=== PATIENT | female | born 1935 | race Caucasian/White ===

== ENCOUNTER 2016-10-03 10:51 | Outpatient (CLI) | payer MEDICARE ==
[2016-10-03 17:50] LABS: BASOPHILS # (AUTO) 0.1 10^3/uL (0.0-0.1); BASOPHILS % (AUTO) 0.8 %; EOSINOPHILS # (AUTO) 0.2 10^3/uL (0.0-0.7); EOSINOPHILS % (AUTO) 2.5 %; HCT - HEMATOCRIT 38.1 % (37.0-47.0); HGB - HEMOGLOBIN 12.5 g/dL (12.0-16.0); LYMPHOCYTES # (AUTO) 2.6 10^3/uL (1.5-3.5); LYMPHOCYTES % (AUTO) 28.7 %; MEAN CORPUSCULAR HEMOGLOBIN 27.3 pg (27.0-31.0); MEAN CORPUSCULAR HGB CONC 32.9 g/dL (32.0-36.0); MEAN CORPUSCULAR VOLUME 83.2 fL (81.0-99.0); MEAN PLATELET VOLUME 7.9 fL (7.9-10.8); MONOCYTES # (AUTO) 0.7 10^3/uL (0.0-1.0); MONOCYTES % (AUTO) 7.2 %; NEUTROPHILS # (AUTO) 5.5 10^3/uL (1.5-6.6); NEUTROPHILS % (AUTO) 60.8 %; NUCLEATED RED BLOOD CELLS AUTO 0.1 /100WBC; RED BLOOD COUNT 4.58 10^6/uL (4.20-5.40); RED CELL DISTRIBUTION WIDTH 13.9 % (12.0-15.0)
[2016-10-03 18:05] LABS: HEMOGLOBIN A1C 0.88 g/dL
[2016-10-03 18:17] LABS: ALBUMIN/GLOBULIN RATIO 1.3 (1.0-2.2); BILIRUBIN,TOTAL 0.6 mg/dL (0.2-1.0); BUN - BLOOD UREA NITROGEN 34 mg/dL (6-20); CALCIUM 9.5 mg/dL (8.5-10.3); CARBON DIOXIDE - CO2 28 mmol/L (21-32); CHLORIDE 99 mmol/L (101-111); CHOL/HDL RATIO 4.3 (<4.4); CHOLESTEROL 149 mg/dL; CREATININE 1.3 mg/dL (0.4-1.0); GFR - MDRD 39 (>89); GLUCOSE 182 mg/dL (70-100); HDL CHOLESTEROL 35 mg/dL; LDL/HDL RATIO 2.2 (<4.4); POTASSIUM 4.2 mmol/L (3.5-5.0); SODIUM 137 mmol/L (135-145); TOTAL PROTEIN 7.5 g/dL (6.7-8.2); TRIGLYCERIDES 188 mg/dL; VLDL CHOLESTEROL 38 mg/dL
== END 2016-10-03 10:52 | disposition home or self-care (01) ==
LOC: LAB.F 10:51
PROVIDERS: ATTEND Family Medicine
DX: Z00.00 Encounter for general adult medical examination without abnormal findings (principal); E11.9 Type 2 diabetes mellitus without complications; I25.10 Atherosclerotic heart disease of native coronary artery without angina pectoris
CPT/HCPCS: 36415; 80053; 80061; 83036; 85025

== ENCOUNTER 2017-04-16 10:11 | Outpatient (CLI) | payer MEDICARE ==
[2017-04-16 18:02] LABS: BASOPHILS # (AUTO) 0.1 10^3/uL (0.0-0.1); BASOPHILS % (AUTO) 0.9 %; EOSINOPHILS # (AUTO) 0.3 10^3/uL (0.0-0.7); EOSINOPHILS % (AUTO) 3.5 %; HGB - HEMOGLOBIN 12.1 g/dL (12.0-16.0); LYMPHOCYTES # (AUTO) 2.2 10^3/uL (1.5-3.5); LYMPHOCYTES % (AUTO) 28.4 %; MEAN CORPUSCULAR HEMOGLOBIN 26.6 pg (27.0-31.0); MEAN CORPUSCULAR HGB CONC 32.3 g/dL (32.0-36.0); MEAN CORPUSCULAR VOLUME 82.2 fL (81.0-99.0); MONOCYTES # (AUTO) 0.6 10^3/uL (0.0-1.0); MONOCYTES % (AUTO) 7.8 %; NEUTROPHILS # (AUTO) 4.6 10^3/uL (1.5-6.6); NEUTROPHILS % (AUTO) 59.4 %; PLT - PLATELET COUNT 287 10^3/uL (130-450); RED BLOOD COUNT 4.57 10^6/uL (4.20-5.40); WHITE BLOOD COUNT 7.7 x10^3/uL (4.8-10.8)
[2017-04-16 18:07] LABS: ALBUMIN 4.1 g/dL (3.2-5.5); ALBUMIN/GLOBULIN RATIO 1.2 (1.0-2.2); ALKALINE PHOSPHATASE 57 IU/L (42-121); ALT ALANINE AMINOTRANSFERASE 11 IU/L (10-60); AST ASPARTATE AMINOTRANSFERASE 17 IU/L (10-42); BILIRUBIN,TOTAL 0.5 mg/dL (0.2-1.0); BUN - BLOOD UREA NITROGEN 27 mg/dL (6-20); CALCIUM 9.2 mg/dL (8.5-10.3); CARBON DIOXIDE - CO2 26 mmol/L (21-32); CHLORIDE 100 mmol/L (101-111); CHOL/HDL RATIO 4.1 (<4.4); CHOLESTEROL 159 mg/dL; CREATININE 1.1 mg/dL (0.4-1.0); GFR - MDRD 48 (>89); GLUCOSE 132 mg/dL (70-100); HDL CHOLESTEROL 39 mg/dL; SODIUM 134 mmol/L (135-145); TOTAL PROTEIN 7.4 g/dL (6.7-8.2)
[2017-04-16 18:09] LABS: HB2 TOTAL 13.8 g/dL; HEMOGLOBIN A1C 0.8 g/dL; HEMOGLOBIN A1C % 7.5 % (4.6-6.2)
[2017-04-16 18:25] LABS: LDL CHOLESTEROL,CALCULATED 72 mg/dL; LDL/HDL RATIO 1.8 (<4.4); VLDL CHOLESTEROL 48 mg/dL
== END 2017-04-16 10:12 | disposition home or self-care (01) ==
LOC: LAB.F 10:11
PROVIDERS: ATTEND Family Medicine
DX: Z00.00 Encounter for general adult medical examination without abnormal findings (principal); E78.5 Hyperlipidemia, unspecified; I10 Essential (primary) hypertension; E05.90 Thyrotoxicosis, unspecified without thyrotoxic crisis or storm; E11.9 Type 2 diabetes mellitus without complications; I25.10 Atherosclerotic heart disease of native coronary artery without angina pectoris
CPT/HCPCS: 36415; 80053; 80061; 83036; 83721; 84443; 85025

== ENCOUNTER 2017-08-14 09:30 | Outpatient (CLI) | payer MEDICARE ==
--- NOTE | 2017-08-14 10:23 | XRAY Report ---
Procedure Date: 08/14/2017 Accession Number: [id number] / [id number] Procedure: XRS - Hip w/Pelvis 2-3V RT CPT Code: FULL RESULT: EXAM: Hip w/Pelvis 2-3V RT DATE: 08/14/2017 9:46 AM CLINICAL HISTORY: UNILATERAL PRIMARY OSTEOARTHRITIS,RIGHT HIP COMPARISON: 11/03/2014 TECHNIQUE: 1 view of the pelvis and 1 view of the hip. FINDINGS: Bones: Normal. No fracture or bone lesion. Joints: Moderate osteoarthritis appears stable. Soft Tissues: Normal. No soft tissue swelling. IMPRESSION: Stable moderate osteoarthritis. RADIA
== END 2017-08-14 09:31 | disposition home or self-care (01) ==
LOC: DI.S 09:30
PROVIDERS: ATTEND Internal Medicine
DX: M16.11 Unilateral primary osteoarthritis, right hip (principal)

== ENCOUNTER 2017-11-06 10:28 | Outpatient (CLI) | payer MEDICARE ==
[2017-11-06 20:09] LABS: CALCIUM 9.3 mg/dL (8.5-10.3); CREATININE 1.2 mg/dL (0.4-1.0)
[2017-11-06 21:16] LABS: HB2 TOTAL 12.7 g/dL; HEMOGLOBIN A1C 0.84 g/dL; HEMOGLOBIN A1C % 8.2 % (4.6-6.2)
== END 2017-11-06 10:29 | disposition home or self-care (01) ==
LOC: LAB.F 10:28
PROVIDERS: ATTEND Family Medicine
DX: E11.9 Type 2 diabetes mellitus without complications (principal); I10 Essential (primary) hypertension
CPT/HCPCS: 36415; 80048; 82043; 83036

== ENCOUNTER 2018-03-01 13:59 | Inpatient (IN) | payer MEDICARE ==
--- NOTE | 2018-03-01 14:25 | ED Physician Documentation ---
History of Present Illness - Stated complaint Stated Complaint: BODY ACHES/COUGHING - Chief complaint Chief Complaint: Fever - History obtained from History obtained from: Patient, Family (daughter in law) - History of Present Illness Timing: Yesterday (Cough that is productive of clear sputum and runny nose with chills and slight delirium per the daughter for the last day or 2. Sent from the clinic for high fever and borderline hypoxemia as well as hypertension.) Review of Systems Ten Systems: 10 systems reviewed and negative Constitutional: reports: Fever, Chills Nose: reports: Rhinorrhea / runny nose Cardiac: denies: Chest pain / pressure, Palpitations Respiratory: reports: Cough. 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 Cardiovascular: CABG, Other HEENT: Tonsil/Adenoidectomy Derm: Skin cancer surgery - Present Medications Home Medications: Ambulatory Orders Medication Instructions Recorded Confirmed Insulin Glargine,Hum.rec.anlog 10 units SQ DAILY 08/27/13 03/01/18 [Lantus] Lisinopril/Hydrochlorothiazide 1 tab ORAL BID 08/27/13 03/01/18 [Lisinopril-Hctz 20-25 mg Tab] Metformin HCl [Glucophage Xr] 1,000 mg ORAL BID 08/27/13 03/01/18 Metoprolol Succinate [Toprol Xl] 25 mg PO BID 08/27/13 03/01/18 glipiZIDE [Glucotrol] 5 mg ORAL BID 08/27/13 03/01/18 Atorvastatin Calcium [Lipitor] 10 mg PO DAILY 11/19/13 03/01/18 - Allergies Allergies/Adverse Reactions: Allergies Allergy/AdvReac Type Severity Reaction Status Date / Time No Known Drug Allergies Allergy Verified 03/01/18 14:03 - Family History Family history: reports: Non contributory PD ED PE NORMAL - Vitals Vital signs reviewed: Yes - General General: Alert and oriented X 3, No acute distress - HEENT HEENT: PERRL, EOMI, Pharynx benign - Neck Neck: Supple, no meningeal sign, No bony TTP - Cardiac Cardiac: Other (Tachy, RR) - Respiratory Respiratory: Other (L base crackles) - Abdomen Abdomen: Normal bowel sounds, Soft, Non tender - Back Back: No CVA TTP, No spinal TTP - Derm Derm: Normal color, Warm and dry - Extremities Extremities: Other (Pedal edema, but calves ok) - Neuro Neuro: Alert and oriented X 3, Normal speech - Psych Psych: Normal mood, Normal affect Results - Vitals Vitals: Vital Signs - 24 hr 03/01/18 03/01/18 03/01/18 14:01 14:23 14:55 Temperature 38.5 C H 36.6 C Heart Rate 117 H 90 Respiratory 22 19 Rate Blood Pressure 177/78 H 152/85 H O2 Saturation 92 96 87 L 03/01/18 03/01/18 15:09 15:45 Temperature 100.9 C H Heart Rate 115 H Respiratory 21 Rate Blood Pressure 149/74 H O2 Saturation 95 94 Oxygen O2 Source Room air Oxygen Flow Rate 2 - Labs Labs: Laboratory Tests 03/01/18 03/01/18 03/01/18 14:45 14:45 14:45 WBC 9.4 RBC 4.36 Hgb 12.2 Hct 36.0 L MCV 82.6 MCH 27.9 MCHC 33.7 RDW 14.5 Plt Count 216 MPV 7.3 L Neut # (Auto) 8.2 H Lymph # (Auto) 0.4 L [place] # (Auto) 0.8 Eos # (Auto) 0.0 Baso # (Auto) 0.0 Absolute Nucleated RBC 0.00 Nucleated RBC % 0.0 Sodium 130 L Potassium 3.9 Chloride 95 L Carbon Dioxide 23 Anion Gap 12.0 BUN 28 H Creatinine 1.4 H Estimated GFR (MDRD) 36 L Glucose 270 H Lactic Acid 2.0 Calcium 8.7 Total Bilirubin 0.6 AST 33 ALT 14 Alkaline Phosphatase 70 Total Protein 7.8 Albumin 4.1 Globulin 3.7 Albumin/Globulin Ratio 1.1 Lipase 60 H Influenza A (Rapid) Influenza B (Rapid) 03/01/18 15:05 WBC RBC Hgb Hct MCV MCH MCHC RDW Plt Count MPV Neut # (Auto) Lymph # (Auto) [place] # (Auto) Eos # (Auto) Baso # (Auto) Absolute Nucleated RBC Nucleated RBC % Sodium Potassium Chloride Carbon Dioxide Anion Gap BUN Creatinine Estimated GFR (MDRD) Glucose Lactic Acid Calcium Total Bilirubin AST ALT Alkaline Phosphatase Total Protein Albumin Globulin Albumin/Globulin Ratio Lipase Influenza A (Rapid) POSITIVE H Influenza B (Rapid) Negative - Rads (name of study) 2v chest Radiology: EMP read contemporaneously (NAD) PD MEDICAL DECISION MAKING - ED course ED course: 82-year-old woman with history of type 2 diabetes, coronary disease and hypertension presents with fevers and chills and productive cough. Clinically with pneumonia although her chest x-ray is clear but is found to have positive influenza A swab which is treated with Tamiflu. Given the clinical pneumonia I also put her on IV doxycycline and she has persistent hypoxemia necessitating admission and I spoke with Dr. Parada for same at 4:20 PM. Departure - Departure Disposition: 66 [facility] DC/Xfer Clinical Impression: Influenza A, Hypoxemia Coronary artery disease Qualifiers: Coronary Disease-Associated Artery/Lesion type: [place] artery [place] vs. tr ansplanted heart: [place] heart Associated angina: angina presence unspecified Qualified Code(s): I25.10 - Atherosclerotic heart disease of [place] coronary artery without angina pectoris Diabetes type 2, uncontrolled Qualifiers: Glycemic state: with hyperglycemia Qualified Code(s): E11.65 - Type 2 diabetes mellitus with hyperglycemia Condition: Serious
[2018-03-01 14:54] LABS: BASOPHILS % (AUTO) 0.3 %; HGB - HEMOGLOBIN 12.2 g/dL (12.0-16.0); LYMPHOCYTES # (AUTO) 0.4 10^3/uL (1.5-3.5); LYMPHOCYTES % (AUTO) 4.6 %; MEAN CORPUSCULAR HEMOGLOBIN 27.9 pg (27.0-31.0); MEAN CORPUSCULAR HGB CONC 33.7 g/dL (32.0-36.0); MEAN CORPUSCULAR VOLUME 82.6 fL (81.0-99.0); MEAN PLATELET VOLUME 7.3 fL (7.9-10.8); MONOCYTES # (AUTO) 0.8 10^3/uL (0.0-1.0); MONOCYTES % (AUTO) 8.4 %; NEUTROPHILS # (AUTO) 8.2 10^3/uL (1.5-6.6); NEUTROPHILS % (AUTO) 86.7 %; PLT - PLATELET COUNT 216 10^3/uL (130-450); RED BLOOD COUNT 4.36 10^6/uL (4.20-5.40); RED CELL DISTRIBUTION WIDTH 14.5 % (12.0-15.0); WHITE BLOOD COUNT 9.4 x10^3/uL (4.8-10.8)
--- NOTE | 2018-03-01 15:01 | XRAY Report ---
Reason: cough Procedure Date: 03/01/2018 Accession Number: [id number] / [id number] Procedure: XR - Chest 2 View X-Ray CPT Code: 74211 FULL RESULT: EXAM: CHEST RADIOGRAPHY EXAM DATE: 03/01/2018 02:38 PM. CLINICAL HISTORY: Cough. COMPARISON: 03/23/2005. TECHNIQUE: 2 views. FINDINGS: Lungs/Pleura: No focal consolidation. No pleural effusion. No pneumothorax. Normal expansion. Mediastinum: Heart and mediastinal contours are unremarkable. Surgical changes from coronary bypass. Other: None. IMPRESSION: No acute cardiopulmonary abnormality. RADIA
[2018-03-01 15:20] LABS: ALBUMIN 4.1 g/dL (3.2-5.5); ALBUMIN/GLOBULIN RATIO 1.1 (1.0-2.2); BILIRUBIN,TOTAL 0.6 mg/dL (0.2-1.0); CALCIUM 8.7 mg/dL (8.5-10.3); CREATININE 1.4 mg/dL (0.4-1.0); TOTAL PROTEIN 7.8 g/dL (6.7-8.2)
[2018-03-01] MEDS ORDERED: SODIUM CHLORIDE 0.9% 1,000 ML IV ONE (15:29)
[2018-03-01] MEDS ORDERED: OSELTAMIVIR 75 MG CAPSULE PO STA (15:49)
[2018-03-01] MEDS ORDERED: DOXYCYCLINE INJ 100 MG in SODIUM CHLORIDE 0.9% MINIBAG 100 ML IV STA (16:18)
[2018-03-01] MEDS ORDERED: ONDANSETRON 4 MG/2 ML VIAL IVP PRN (16:42)
[2018-03-01] MEDS ORDERED: SODIUM CHLORIDE FLUSH 0.9% 10 ML SYRINGE IVP PRN (16:42)
[2018-03-01] MEDS ORDERED: ACETAMINOPHEN 325 MG TABLET PO PRN (16:42)
[2018-03-01] MEDS ORDERED: cefTRIAXone 1 GM VIAL IVP SCH (16:49)
--- NOTE | 2018-03-01 16:58 | HISTORY & PHYSICAL EXAMINATION ---
Chief Complaint - Chief Complaint Chief Complaint: cough with fever History of Present Illness - History of Present Illness HPI Comment/Other: Ms. Stapleton is a 82-year-old female with a PMH significant for type 2 diabetes, hx of CAD and MD, and hypertension, who presents ER with fevers and chills and productive cough. Pt report she had cough for 3-4 days. Last night she had fever at 102 degree. Although her chest x-ray is clear but Clinically she p resent crackles lung sound bilaterally and pneumonia. Also pt is found to have positive influenza A in swab. Pt had 38.5 degree fever at ER, elevated blood pressure, ST at 117, 92% sats on room air. Pt is admitted for pneumonia, fever and influenza infection. 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 Living arrangement: At home Living Situation: With family - POLST POLST Status: Full Code Meds/Allgy - Home Medications Home Medications: Ambulatory Orders Medication Instructions Recorded Confirmed Insulin Glargine,Hum.rec.anlog 12 units SQ DAILY 08/27/13 03/01/18 [Lantus] Metformin HCl [Glucophage Xr] 1,000 mg ORAL BID 08/27/13 03/01/18 glipiZIDE [Glucotrol] 5 mg ORAL BID 08/27/13 03/01/18 Atorvastatin Calcium [Lipitor] 10 mg PO DAILY 11/19/13 03/01/18 Lisinopril/Hydrochlorothiazide 2 tab PO DAILY 03/01/18 03/01/18 [Lisinopril-Hctz 20-12.5 mg Tab] Metoprolol Tartrate [Lopressor] 50 mg PO BID 03/01/18 03/01/18 Aspirin [Aspirin EC] 81 mg PO DAILY 03/02/18 03/02/18 Furosemide [Lasix] 10 mg PO DAILY PRN 03/02/18 03/02/18 - Allergies Allergies/Adverse Reactions: Allergies Allergy/AdvReac Type Severity Reaction Status Date / Time No Known Drug Allergies Allergy Verified 03/01/18 14:03 Review of Systems - Constitutional Constitutional: reports: Fatigue, Fever, Chills, Weakness. denies: Malaise, Poor appetite, Diaphoresis, Night sweats - Eyes Eyes: denies: Pain, Irritation, Amaurosis, Blurred vision, Spots in vision, Field loss, Vision loss, Dipolpia - Ears, Nose & Throat Ears, Nose & Throat: denies: Ear pain, Hearing loss, Hearing aids, Tinnitus, Vertigo, Nasal pain, Nasal discharge, Nosebleeds, Nasal obstruction, Nasal congestion, Postnasal drainage, Dentures, Sore throat, Hoarseness - Cardiovascular Cariovascular: denies: Irregular heart rate, Palpitations, Chest pain, Edema, Lightheadedness, Syncope, Exertional dyspnea, Decr. exercise tolerance - Respiratory Respiratory: reports: Cough, Sputum production, Snoring. denies: Wheezing, Hemoptysis, Orthopnea, SOB at rest, SOB with exertion, Apnea, Stridor, Pleuritic pain - Gastrointestinal Gastrointestinal: denies: Abdominal pain, Abdominal distention, Constipation, Diarrhea, Change in bowel habits, Rectal bleeding, Black stools, Bloody stools, Nausea, Vomiting, Bile emesis, Lazaro blood emesis, Coffee grounds emesis, Reflux/heartburn - Genitourinary Genitourinary: denies: Dysuria, Frequency, Urgency, Hematuria, Incontinence, Flank pain, Nocturia, Urethral discharge - Musculoskeletal Musculoskeletal: denies: Muscle pain, Back pain, Muscle aches, Stiffness, Limited range of motion, Muscle weakness, Gout, Joint pain - Integumentary Integumentary: denies: Rash, Pruritis, Lesions, Dryness, Lumps, Acne, Pigment changes, Nail changes - Neurological Neurological: denies: General weakness, Focal weakness, Headache, Dizziness, Numbness, Memory problems, Pre-existing deficit, Abnormal gait - Psychiatric Psychiatric: denies: Depression, Anxiety, Suicidal, Delusions, Hallucinations, Homicidal - Endocrine Endocrine: denies: Polyuria, Polydypsia, Polyphagia, Intolerance to cold - Hematologic/Lymphatic Hematologic/Lymphatic: denies: Anemia, Bruising, Petechiae, Blood clots, Lymphadenopathy, Bleeding tendencies Prior Level of Functionality: independently Exam - Vital Signs Reviewed Vital Signs: Yes Vital Signs: Vital Signs x48h Temp Pulse Resp BP Pulse Ox 03/01/18 16:30 38.8 C H 102 H 21 137/101 H 98 03/01/18 15:45 94 03/01/18 15:09 38.3 C H 115 H 21 149/74 H 95 03/01/18 14:55 87 L 03/01/18 14:23 36.6 C 90 19 152/85 H 96 03/01/18 14:01 38.5 C H 117 H 22 177/78 H 92 - Physical Exam General Appearance: positive: No acute distress, Alert. negative: Lethargic Eyes Bilateral: positive: Normal inspection, PERRL, No lid inflammation, Conjunctivae nml ENT: positive: ENT inspection nml, Pharynx nml, No signs of dehydration. negative: Purulent nasal drainage, Pharyngeal erythema, Oral lesions Neck: positive: Nml inspection, Thyroid nml, No JVD, Trachea midline. negative: Thyromegaly, Lymphadenopathy (R), Lymphadenopathy (L), Stiff neck, Swelling/bruising, Tracheal deviation Respiratory: positive: Chest non-tender, No respiratory distress, Rhonchi. negative: Wheezes, Rales Cardiovascular: positive: Regular rate & rhythm, No murmur, No gallop. negative: Irregularly irregular, Extrasystoles, Tachycardia, Bradycardia, JVD present, Systolic murmur, Diastolic murmur Peripheral Pulses: positive: 2+ Abdomen: positive: Non-tender, No organomegaly, Nml bowel sounds, No distention. negative: Tenderness, Guarding, Rebound Back: positive: Nml inspection. negative: CVA tenderness (R), CVA tenderness (L) Skin: positive: Color nml, No rash, Warm, Dry. negative: Cyanosis, Diaphoresis, Pallor Extremities: positive: Non-tender, Full ROM, Nml appearance. negative: Calf tenderness, Joint swelling, Pedrito's sign/cords Neurologic/Psychiatric: positive: Oriented x3, Motor nml, Sensation nml, Mood/affect nml. negative: Weakness, Sensory loss, Facial droop, Slurred/abnml speech, Depressed mood/affect Sepsis Event Note (H) - Evaluation Current Stage of Sepsis: Sepsis Possible source of Sepsis: positive: Pulmonary - Sepsis Criteria Sepsis Criteria: Recorded Temperature greater than 38.3C or Less than 36C, Recorded Heart Rate greater than 90 bpm Conclusion/Plan - Problem List (1) Pneumonia Conclusion/Plan: pt present fever, cough with productive, crackles lung sound bilaterally treat with antibiotics Rocephin and Azith blood culture, followup vital and tele monitor IVF of NS (2) Fever Conclusion/Plan: treat underline pneumonia and influ A infection Tylenol PRN IVF of NS, precaution of Sepsis (3) Influenza A Conclusion/Plan: treat with Tamiflu isolation for influenza infection (4) Diabetes type 2, uncontrolled Conclusion/Plan: resume home insulin dosage slide scale ACHS check A1C hypoglycemia protocol Qualifiers: Glycemic state: with hyperglycemia Qualified Code(s): E11.65 - Type 2 diabetes mellitus with hyperglycemia (5) Hx of coronary artery disease Conclusion/Plan: resume home Aspirin treat HTN with BP meds tele and vital monitor (6) HTN (hypertension) Conclusion/Plan: resume home BP meds. vital monitor (7) CKD (chronic kidney disease) Conclusion/Plan: hydration, hold neph toxical agent lab monitor (8) Full code status Conclusion/Plan: pt request full code with CPR but decline incubation - Lab Results Fish Bones: 03/02/18 06:00 03/02/18 06:00 Core Measures - Anticipated LOS I expect patient to be DC'd or transferred within 96 hours.: Yes - DVT/VTE - Prophylaxis VTE/DVT Device ordered at admit?: Yes VTE/DVT Prophylaxis med ordered at admit?: Yes
[2018-03-01] MEDS ORDERED: ACETAMINOPHEN 325 MG TABLET PO STA (16:59)
[2018-03-01 17:35] LABS: HEMOGLOBIN A1C 0.82 g/dL; HEMOGLOBIN A1C % 7.9 % (4.6-6.2)
[2018-03-01] MEDS: cefTRIAXone 1 GM in SODIUM CHLORIDE 0.9% MINIBAG 100 ML IV SCH (18:12)
[2018-03-01] MEDS: SODIUM CHLORIDE 0.9% 1,000 ML IV SCH (18:13)
[2018-03-01] MEDS: INSULIN ASPART 300 UNIT/3 ML PEN SUBQ SCH ×2 (18:13→21:04)
[2018-03-01] MEDS: SODIUM CHLORIDE FLUSH 0.9% 10 ML SYRINGE IVP SCH (18:14)
[2018-03-01] MEDS: LISINOPRIL 20 MG TABLET PO SCH (18:17)
[2018-03-01] MEDS: AZITHROMYCIN INJ 500 MG in SODIUM CHLORIDE 0.9% 250 ML IV SCH (18:53)
[2018-03-01] MEDS: HEPARIN 5,000 UNIT/ML VIAL SUBQ SCH (20:59)
[2018-03-01] MEDS ORDERED: INSULIN GLARGINE 300 UNIT/3 ML PEN SUBQ SCH (21:00)
[2018-03-01] MEDS: OSELTAMIVIR 30 MG CAPSULE PO SCH (21:07)
[2018-03-01] MEDS: FAMOTIDINE 20 MG TABLET PO SCH (21:07)
[2018-03-01] MEDS: METOPROLOL TARTRATE 50 MG TABLET PO SCH (21:54)
[2018-03-02] MEDS: SODIUM CHLORIDE FLUSH 0.9% 10 ML SYRINGE IVP SCH ×3 (02:27→16:48)
[2018-03-02] MEDS: SODIUM CHLORIDE 0.9% 1,000 ML IV SCH ×2 (04:30→19:12)
[2018-03-02 06:13] LABS: BASOPHILS % (AUTO) 0.3 %; EOSINOPHILS % (AUTO) 0.2 %; HGB - HEMOGLOBIN 10.3 g/dL (12.0-16.0); LYMPHOCYTES # (AUTO) 1.3 10^3/uL (1.5-3.5); LYMPHOCYTES % (AUTO) 20.7 %; MEAN CORPUSCULAR HEMOGLOBIN 27.5 pg (27.0-31.0); MEAN CORPUSCULAR HGB CONC 32.3 g/dL (32.0-36.0); MEAN CORPUSCULAR VOLUME 85.2 fL (81.0-99.0); MEAN PLATELET VOLUME 7.3 fL (7.9-10.8); MONOCYTES # (AUTO) 0.9 10^3/uL (0.0-1.0); MONOCYTES % (AUTO) 14.4 %; NEUTROPHILS # (AUTO) 4.1 10^3/uL (1.5-6.6); NEUTROPHILS % (AUTO) 64.4 %; PLT - PLATELET COUNT 172 10^3/uL (130-450); RED BLOOD COUNT 3.73 10^6/uL (4.20-5.40); RED CELL DISTRIBUTION WIDTH 14.9 % (12.0-15.0); WHITE BLOOD COUNT 6.3 x10^3/uL (4.8-10.8)
[2018-03-02 06:22] LABS: ALBUMIN 3.2 g/dL (3.2-5.5); ALBUMIN/GLOBULIN RATIO 1.2 (1.0-2.2); BILIRUBIN,TOTAL 0.7 mg/dL (0.2-1.0); CALCIUM 7.7 mg/dL (8.5-10.3); CREATININE 1.4 mg/dL (0.4-1.0); MAGNESIUM 1.6 mg/dL (1.7-2.8); TOTAL PROTEIN 5.8 g/dL (6.7-8.2)
[2018-03-02] MEDS ORDERED: POTASSIUM CHLORIDE 20 MEQ TABLET PO ONE (07:37)
[2018-03-02] MEDS ORDERED: INSULIN ASPART 300 UNIT/3 ML PEN SUBQ ONE (07:41)
[2018-03-02] MEDS ORDERED: MAGNESIUM SULFATE 1 GM in SODIUM CHLORIDE 0.9% 50 ML IV ONE ×2 (07:42→11:00)
[2018-03-02] MEDS: ATORVASTATIN 10 MG TABLET PO SCH (08:57)
[2018-03-02] MEDS: LISINOPRIL 20 MG TABLET PO SCH (08:57)
[2018-03-02] MEDS: cefTRIAXone 1 GM in SODIUM CHLORIDE 0.9% MINIBAG 100 ML IV SCH ×2 (08:57→11:30)
[2018-03-02] MEDS: POLYETHYLENE GLYCOL 3350 17 GM PACKET PO SCH (08:57)
[2018-03-02] MEDS: METOPROLOL TARTRATE 50 MG TABLET PO SCH ×2 (08:57→20:47)
[2018-03-02] MEDS: OSELTAMIVIR 30 MG CAPSULE PO SCH ×2 (08:58→20:46)
[2018-03-02] MEDS ORDERED: AZITHROMYCIN INJ 500 MG in SODIUM CHLORIDE 0.9% 250 ML IV SCH (09:00)
[2018-03-02] MEDS ORDERED: INSULIN GLARGINE HUM REC ANLOG 12 UNIT SQ SCH (09:00)
[2018-03-02] MEDS: INSULIN ASPART 300 UNIT/3 ML PEN SUBQ SCH ×4 (09:09→20:48)
[2018-03-02] MEDS: HEPARIN 5,000 UNIT/ML VIAL SUBQ SCH ×2 (09:11→20:45)
[2018-03-02] MEDS: SACCHAROMYCES BOULARDII 250 MG CAPSULE PO SCH (16:49)
--- NOTE | 2018-03-02 17:42 | PROVIDER PROGRESS NOTE ---
Subjective - Prog Note Date Prog Note Date: 03/02/18 - Subjective Pt reports feeling: Improved Subjective: pt report she feel much better than yesterday, feel far more energy and walk to bathroom by her self. she denies any more fever, chill, chest pain. Current Medications - Current Medications Current Medications: Active Medications Acetaminophen (Tylenol) 650 mg PO Q4HR PRN PRN Reason: Pain 1 to 4 Atorvastatin Calcium (Lipitor) 10 mg PO DAILY [facility] Last Admin: 03/02/18 08:57 Dose: 10 mg Famotidine (Pepcid) 20 mg PO QPM [facility] Last Admin: 03/01/18 21:07 Dose: 20 mg Heparin Sodium (Porcine) () 5,000 unit SUBQ BID [facility] Last Admin: 03/02/18 09:11 Dose: 5,000 unit Azithromycin 500 mg/ Sodium (Chloride) 250 mls @ 250 mls/hr IV Q24H [facility] Last Infusion: 03/01/18 20:00 Dose: Infused Ceftriaxone Sodium 1 gm/ (Sodium Chloride) 100 mls @ 200 mls/hr IV DAILY [facility] Last Infusion: 03/02/18 12:00 Dose: Infused Insulin Aspart (Novolog) 2 - 10 unit SUBQ 0800,1200,1700,2100 [facility]; Protocol Last Admin: 03/02/18 16:49 Dose: 4 unit Insulin Glargine (Lantus Solostar) 20 unit SUBQ QPM [facility] Lisinopril (Zestril) 20 mg PO DAILY [facility] Last Admin: 03/02/18 08:57 Dose: 20 mg Metoprolol Tartrate (Lopressor) 50 mg PO BID [facility] Last Admin: 03/02/18 08:57 Dose: 50 mg Ondansetron HCl (Zofran Inj) 4 mg IVP Q6HR PRN PRN Reason: Nausea / Vomiting Oseltamivir Phosphate (Tamiflu) 30 mg PO BID [facility] Stop: 03/06/18 09:01 Last Admin: 03/02/18 08:58 Dose: 30 mg Polyethylene Glycol (Miralax) 17 gm PO DAILY [facility] Last Admin: 03/02/18 08:57 Dose: 17 gm Saccharomyces Boulardii (Florastor) 250 mg PO BIDWM [facility] Last Admin: 03/02/18 16:49 Dose: 250 mg Sodium Chloride (Normal Saline Flush 0.9%) 10 ml IVP PRN PRN PRN Reason: NEEDED PER PROVIDER ORDERS Sodium Chloride (Normal Saline Flush 0.9%) 10 ml IVP 0100,0900,1700 [facility] Last Admin: 03/02/18 16:48 Dose: 10 ml Insulin Glargine,Hum.rec.anlog [Lantus] 12 units SQ DAILY 08/27/13 Metformin HCl [Glucophage Xr] 1,000 mg ORAL BID 08/27/13 glipiZIDE [Glucotrol] 5 mg ORAL BID 08/27/13 Atorvastatin Calcium [Lipitor] 10 mg PO DAILY 11/19/13 Lisinopril/Hydrochlorothiazide [Lisinopril-Hctz 20-12.5 mg Tab] 2 tab PO DAILY 03/01/18 Metoprolol Tartrate [Lopressor] 50 mg PO BID 03/01/18 Aspirin [Aspirin EC] 81 mg PO DAILY 03/02/18 Furosemide [Lasix] 10 mg PO DAILY PRN 03/02/18 Objective - Vital Signs/Intake & Output Reviewed Vital Signs: Yes Vital Signs: Vital Signs x48h Temp Pulse Pulse Resp BP Pulse Ox 03/02/18 16:37 36.8 C 74 16 96 03/02/18 16:02 37.0 C 76 16 140/76 H 96 03/02/18 12:08 36.8 C 73 15 128/61 96 Intake & Output: Intake & Output 02/27/18 02/28/18 03/01/18 03/02/18 23:59 23:59 23:59 23:59 Intake Total 2151.667 1908.333 Balance 215.7 1908.333 - Objective General Appearance: positive: No acute distress, Alert. negative: Lethargic Eyes Bilateral: positive: Normal inspection, PERRL, No lid inflammation, Conjunctivae nml ENT: positive: ENT inspection nml, Pharynx nml, No signs of dehydration. negative: Purulent nasal drainage, Pharyngeal erythema, Oral lesions Neck: positive: Nml inspection, Thyroid nml, No JVD, Trachea midline. negative: Thyromegaly, Lymphadenopathy (R), Lymphadenopathy (L), Stiff neck, Swelling/bruising, Tracheal deviation Respiratory: positive: Chest non-tender, No respiratory distress. negative: Wheezes, Rales Cardiovascular: positive: Regular rate & rhythm, No murmur, No gallop. negative: Irregularly irregular, Extrasystoles, Tachycardia, Bradycardia, JVD present, Systolic murmur, Diastolic murmur Peripheral Pulses: 2+ Radial (R), 2+ Radial (L), 2+ Dorsalis pedis (R), 2+ Dorsalis pedis (L) Abdomen: positive: Non-tender, No organomegaly, Nml bowel sounds, No distention. negative: Tenderness, Guarding, Rebound Back: positive: Nml inspection. negative: CVA tenderness (R), CVA tenderness (L) Skin: positive: Color nml, No rash, Warm, Dry. negative: Cyanosis, Diaphoresis, Pallor, Skin rash Extremities: positive: Non-tender, Full ROM, Nml appearance. negative: Calf t enderness, Joint swelling, Pedrito's sign/cords Neurologic/Psychiatric: positive: Oriented x3, Motor nml, Sensation nml, Mood/affect nml. negative: Weakness, Sensory loss, Facial droop, Slurred/abnml speech, Depressed mood/affect - Lab Results Fish Bones: 03/02/18 06:00 03/02/18 06:00 Other Labs: Lab Results x24hrs 03/02/18 03/02/18 03/02/18 Range/Units 16:30 11:07 08:06 WBC (4.8-10.8) x10^3/uL RBC (4.20-5.40) 10^6/uL Hgb (12.0-16.0) g/dL Hct (37.0-47.0) % MCV (81.0-99.0) fL MCH (27.0-31.0) pg MCHC (32.0-36.0) g/dL RDW (12.0-15.0) % Plt Count (130-450) 10^3/uL MPV (7.9-10.8) fL Neut # (Auto) (1.5-6.6) 10^3/uL Lymph # (Auto) (1.5-3.5) 10^3/uL [place] # (Auto) (0.0-1.0) 10^3/uL Eos # (Auto) (0.0-0.7) 10^3/uL Baso # (Auto) (0.0-0.1) 10^3/uL Absolute Nucleated RBC x10^3/uL Nucleated RBC % /100WBC Sodium (135-145) mmol/L Potassium (3.5-5.0) mmol/L Chloride (101-111) mmol/L Carbon Dioxide (21-32) mmol/L Anion Gap (6-13) BUN (6-20) mg/dL Creatinine (0.4-1.0) mg/dL Estimated GFR (MDRD) (>89) Glucose (70-100) mg/dL POC Whole Bld Glucose 222 H 220 H 139 H (70 - 100) mg/dL Glycated Hemoglobin (4.6-6.2) % Estim Average Glucose (70-100) Calcium (8.5-10.3) mg/dL Magnesium (1.7-2.8) mg/dL Total Bilirubin (0.2-1.0) mg/dL AST (10-42) IU/L ALT (10-60) IU/L Alkaline Phosphatase (42-121) IU/L Total Protein (6.7-8.2) g/dL Albumin (3.2-5.5) g/dL Globulin (2.1-4.2) g/dL Albumin/Globulin Ratio (1.0-2.2) 03/02/18 03/02/18 03/01/18 Range/Units 06:00 06:00 20:38 WBC 6.3 (4.8-10.8) x10^3/uL RBC 3.73 L (4.20-5.40) 10^6/uL Hgb 10.3 L (12.0-16.0) g/dL Hct 31.8 L (37.0-47.0) % MCV 85.2 (81.0-99.0) fL MCH 27.5 (27.0-31.0) pg MCHC 32.3 (32.0-36.0) g/dL RDW 14.9 (12.0-15.0) % Plt Count 172 (130-450) 10^3/uL MPV 7.3 L (7.9-10.8) fL Neut # (Auto) 4.1 (1.5-6.6) 10^3/uL Lymph # (Auto) 1.3 L (1.5-3.5) 10^3/uL [place] # (Auto) 0.9 (0.0-1.0) 10^3/uL Eos # (Auto) 0.0 (0.0-0.7) 10^3/uL Baso # (Auto) 0.0 (0.0-0.1) 10^3/uL Absolute Nucleated RBC 0.01 x10^3/uL Nucleated RBC % 0.1 /100WBC Sodium 134 L (135-145) mmol/L Potassium 3.4 L (3.5-5.0) mmol/L Chloride 103 (101-111) mmol/L Carbon Dioxide 24 (21-32) mmol/L Anion Gap 7.0 (6-13) BUN 30 H (6-20) mg/dL Creatinine 1.4 H (0.4-1.0) mg/dL Estimated GFR (MDRD) 36 L (>89) Glucose 137 H (70-100) mg/dL POC Whole Bld Glucose 347 H (70 - 100) mg/dL Glycated Hemoglobin (4.6-6.2) % Estim Average Glucose (70-100) Calcium 7.7 L (8.5-10.3) mg/dL Magnesium 1.6 L (1.7-2.8) mg/dL Total Bilirubin 0.7 (0.2-1.0) mg/dL AST 27 (10-42) IU/L ALT 13 (10-60) IU/L Alkaline Phosphatase 51 (42-121) IU/L Total Protein 5.8 L (6.7-8.2) g/dL Albumin 3.2 (3.2-5.5) g/dL Globulin 2.6 (2.1-4.2) g/dL Albumin/Globulin Ratio 1.2 (1.0-2.2) 03/01/18 03/01/18 Range/Units 17:52 14:45 WBC (4.8-10.8) x10^3/uL RBC (4.20-5.40) 10^6/uL Hgb (12.0-16.0) g/dL Hct (37.0-47.0) % MCV (81.0-99.0) fL MCH (27.0-31.0) pg MCHC (32.0-36.0) g/dL RDW (12.0-15.0) % Plt Count (130-450) 10^3/uL MPV (7.9-10.8) fL Neut # (Auto) (1.5-6.6) 10^3/uL Lymph # (Auto) (1.5-3.5) 10^3/uL [place] # (Auto) (0.0-1.0) 10^3/uL Eos # (Auto) (0.0-0.7) 10^3/uL Baso # (Auto) (0.0-0.1) 10^3/uL Absolute Nucleated RBC x10^3/uL Nucleated RBC % /100WBC Sodium (135-145) mmol/L Potassium (3.5-5.0) mmol/L Chloride (101-111) mmol/L Carbon Dioxide (21-32) mmol/L Anion Gap (6-13) BUN (6-20) mg/dL Creatinine (0.4-1.0) mg/dL Estimated GFR (MDRD) (>89) Glucose (70-100) mg/dL POC Whole Bld Glucose 246 H (70 - 100) mg/dL Glycated Hemoglobin 7.9 H (4.6-6.2) % Estim Average Glucose 180 H (70-100) Calcium (8.5-10.3) mg/dL Magnesium (1.7-2.8) mg/dL Total Bilirubin (0.2-1.0) mg/dL AST (10-42) IU/L ALT (10-60) IU/L Alkaline Phosphatase (42-121) IU/L Total Protein (6.7-8.2) g/dL Albumin (3.2-5.5) g/dL Globulin (2.1-4.2) g/dL Albumin/Globulin Ratio (1.0-2.2) ABX Reporting Has patient been on IV antibiotics over the past 48 hours?: Yes Sepsis Event Note (H) - Evaluation Current Stage of Sepsis: Sepsis Possible source of Sepsis: positive: Pulmonary - Sepsis Criteria Sepsis Criteria: Recorded Temperature greater than 38.3C or Less than 36C, Recorded Heart Rate greater than 90 bpm Assessment/Plan - Problem List (1) Pneumonia Impression: 03/02 pt feel much better, pt's lung sound is significant improved continue antibiotics treatment IVF of NS gently pt present fever, cough with productive, crackles lung sound bilaterally treat with antibiotics Rocephin and Azith blood culture, followup vital and tele monitor IVF of NS (2) Fever Conclusion/Plan: no more fever blood culture negative preliminary continue antibiotics treat underline pneumonia and influ A infection Tylenol PRN IVF of NS, precaution of Sepsis (3) Influenza A Conclusion/Plan: treat with Tamiflu isolation for influenza infection (4) Diabetes type 2, uncontrolled Conclusion/Plan: 03/02 pt is still hyperglycemia increase Lantus to 20 unit slide scale, ACHS hypoglycemia protocol resume home insulin dosage slide scale ACHS check A1C hypoglycemia protocol (5) Hx of coronary artery disease Conclusion/Plan: resume home Aspirin treat HTN with BP meds tele and vital monitor (6) HTN (hypertension) Conclusion/Plan: resume home BP meds. vital monitor (7) CKD (chronic kidney disease) Conclusion/Plan: hydration, hold neph toxical agent lab monitor (4) Diabetes type 2, uncontrolled Qualifiers: Glycemic state: with hyperglycemia Qualified Code(s): E11.65 - Type 2 diabetes mellitus with hyperglycemia
[2018-03-02] MEDS: AZITHROMYCIN INJ 500 MG in SODIUM CHLORIDE 0.9% 250 ML IV SCH (19:12)
[2018-03-02] MEDS ORDERED: ALBUTEROL NEB 2.5 MG/3 ML INH PRN (19:30)
[2018-03-02] MEDS: FAMOTIDINE 20 MG TABLET PO SCH (20:47)
[2018-03-02] MEDS ORDERED: INSULIN GLARGINE 300 UNIT/3 ML PEN SUBQ SCH (21:00)
[2018-03-03] MEDS: SODIUM CHLORIDE FLUSH 0.9% 10 ML SYRINGE IVP SCH ×2 (00:03→08:55)
[2018-03-03 06:10] LABS: BASOPHILS % (AUTO) 0.8 %; EOSINOPHILS # (AUTO) 0.1 10^3/uL (0.0-0.7); EOSINOPHILS % (AUTO) 2.6 %; HGB - HEMOGLOBIN 10.2 g/dL (12.0-16.0); LYMPHOCYTES # (AUTO) 1.9 10^3/uL (1.5-3.5); LYMPHOCYTES % (AUTO) 46.8 %; MEAN CORPUSCULAR HEMOGLOBIN 27.4 pg (27.0-31.0); MEAN CORPUSCULAR HGB CONC 32.7 g/dL (32.0-36.0); MEAN CORPUSCULAR VOLUME 83.9 fL (81.0-99.0); MEAN PLATELET VOLUME 7.4 fL (7.9-10.8); MONOCYTES # (AUTO) 0.5 10^3/uL (0.0-1.0); MONOCYTES % (AUTO) 11.6 %; NEUTROPHILS # (AUTO) 1.6 10^3/uL (1.5-6.6); NEUTROPHILS % (AUTO) 38.2 %; PLT - PLATELET COUNT 178 10^3/uL (130-450); RED CELL DISTRIBUTION WIDTH 14.8 % (12.0-15.0); WHITE BLOOD COUNT 4.2 x10^3/uL (4.8-10.8)
[2018-03-03 06:34] LABS: ALBUMIN 2.9 g/dL (3.2-5.5); ALBUMIN/GLOBULIN RATIO 1.1 (1.0-2.2); BILIRUBIN,TOTAL 0.3 mg/dL (0.2-1.0); TOTAL PROTEIN 5.6 g/dL (6.7-8.2)
[2018-03-03] MEDS: SODIUM CHLORIDE 0.9% 1,000 ML IV SCH (08:25)
[2018-03-03] MEDS: INSULIN ASPART 300 UNIT/3 ML PEN SUBQ SCH ×2 (08:41→12:00)
[2018-03-03] MEDS: SACCHAROMYCES BOULARDII 250 MG CAPSULE PO SCH (08:42)
[2018-03-03] MEDS: ATORVASTATIN 10 MG TABLET PO SCH (08:42)
[2018-03-03] MEDS: HEPARIN 5,000 UNIT/ML VIAL SUBQ SCH (08:45)
[2018-03-03] MEDS: METOPROLOL TARTRATE 50 MG TABLET PO SCH (08:52)
[2018-03-03] MEDS: LISINOPRIL 20 MG TABLET PO SCH (08:53)
[2018-03-03] MEDS: OSELTAMIVIR 30 MG CAPSULE PO SCH (08:54)
[2018-03-03] MEDS: POLYETHYLENE GLYCOL 3350 17 GM PACKET PO SCH (08:54)
[2018-03-03] MEDS ORDERED: cefTRIAXone 1 GM in SODIUM CHLORIDE 0.9% MINIBAG 100 ML IV SCH (09:00)
--- NOTE | 2018-03-03 11:13 | Discharge Plan ---
Discharge Plan Disposition: Home, Self Care Condition: Poor Prescriptions: Amox/Clav 875/125 [Augmentin] 1 each PO Q12H #10 tablet Lisinopril [Prinivil] 20 mg PO DAILY #15 tablet Oseltamivir [Tamiflu] 30 mg PO BID #6 capsule Saccharomyces Boulardii [Florastor] 250 mg PO BID #10 capsule Diet: Diabetic Activity Restrictions: Activity as Tolerated Shower Restrictions: No (fall precaution) Instruction Topics: Saccharomyces boulardii Florastor oral dosage forms, Oseltamivir capsules, Amoxicillin Clavulanic Acid tablets, Lisinopril tablets Additional Instructions or Follow Up instructions: You may followup your PCP in one week. You were found to have pneumonia and influenza infection. You have been treated with antibiotics and anti-influenza. You are greatly improved and stable. Augmentin and Tamiflu are prescribed for pt to continue the treatment course. You was found to have lower sodium at the admission, your home medication HCTZ is hold now. Should your symptoms return or worsen, you may present ER or call 911 or call your PCP for help. No Smoking: If you smoke, Please STOP! Call for help. Follow-up with: Yohan Patel MD [Primary Care Provider] -
--- NOTE | 2018-03-03 11:29 | DISCHARGE SUMMARY ---
Discharge Summary Discharge Date: 03/03/18 Discharging Provider: [facility]OWER Primary Care Provider: Dr. Yohan Silverio Condition at Discharge: Poor Discharge Disposition: Home, Self Care Discharge Facility Name: home - DIAGNOSES Admission Diagnoses: (1) Pneumonia (2) Fever (3) Influenza A (4) Diabetes type 2, uncontrolled (5) Hx of coronary artery disease (6) HTN (hypertension) (7) CKD (chronic kidney disease) Discharge Diagnoses with Status of Each Condition: 1) Pneumonia pt's WBC became normal. 95% sat on room air. no fever, chill. pt state she feel much better and is ready to be d/c. pt is prescribed antibiotics Augmentin to finish the treatment course (2) Fever resolved. blood culture is negative. No more fever/chill (3) Influenza A pt feel much better and has strength to walk, per pt report. she state she is ready to be d/c. Tamiflu is prescribed to finish the treatment course. (4) Diabetes type 2, uncontrolled stable, resume home regimen, follow up PCP management (5) Hx of coronary artery disease stable, follow up PCP management (6) HTN (hypertension) stable, hold HCTZ for her hyponatremia (7) CKD (chronic kidney disease) improved as her baseline, follow up PCP management - HPI History of Present Illness: Ms. Stapleton is a 82-year-old female with a PMH significant for type 2 diabetes, hx of CAD and TN, and hypertension, who presents ER with fevers and chills and productive cough. Pt report she had cough for 3-4 days. Last night she had fever at 102 degree. Although her chest x-ray is clear but Clinically she present crackles lung sound bilaterally and pneumonia. Also pt is found to have positive influenza A in swab. Pt had 38.5 degree fever at ER, elevated blood pressure, ST at 117, 92% sats on room air. Pt is admitted for pneumonia, fever a nd influenza infection. - HOSPITAL COURSE Hospital Course: You were found to have pneumonia and influenza infection. You have been treated with antibiotics and anti-influenza. You are greatly improved and stable, has strength to walk. Augmentin and Tamiflu are prescribed for pt to continue the treatment course. You was found to have lower sodium at the admission, your home medication HCTZ is hold now. - ALLERGIES Allergies/Adverse Reactions: Allergies Allergy/AdvReac Type Severity Reaction Status Date / Time No Known Drug Allergies Allergy Verified 03/01/18 14:03 - MEDICATIONS Home Medications: Ambulatory Orders Medication Instructions Recorded Confirmed Insulin Glargine,Hum.rec.anlog 12 units SQ DAILY 08/27/13 03/01/18 [Lantus] Metformin HCl [Glucophage Xr] 1,000 mg ORAL BID 08/27/13 03/01/18 glipiZIDE [Glucotrol] 5 mg ORAL BID 08/27/13 03/01/18 Atorvastatin Calcium [Lipitor] 10 mg PO DAILY 11/19/13 03/01/18 Metoprolol Tartrate [Lopressor] 50 mg PO BID 03/01/18 03/01/18 Aspirin [Aspirin EC] 81 mg PO DAILY 03/02/18 03/02/18 Furosemide [Lasix] 10 mg PO DAILY PRN 03/02/18 03/02/18 Amox/Clav 875/125 [Augmentin] 1 each PO Q12H #10 tablet 03/03/18 Lisinopril [Prinivil] 20 mg PO DAILY #15 tablet 03/03/18 Oseltamivir [Tamiflu] 30 mg PO BID #6 capsule 03/03/18 Saccharomyces Boulardii [Florastor] 250 mg PO BID #10 capsule 03/03/18 - PHYSICAL EXAM AT DISCHARGE General Appearance: positive: No acute distress, Alert. negative: Lethargic Eyes Bilateral: positive: Normal inspection, PERRL, No lid inflammation, Conjunctivae nml ENT: positive: ENT inspection nml, Pharynx nml, No signs of dehydration. negative: Purulent nasal drainage, Pharyngeal erythema, Oral lesions Neck: positive: Nml inspection, Thyroid nml, No JVD, Trachea midline. negative: Thyromegaly, Lymphadenopathy (R), Lymphadenopathy (L), Stiff neck, Swelling/bruising, Tracheal deviation Respiratory: positive: Chest non-tender, No respiratory distress, Breath sounds nml. negative: Wheezes, Rales, Rhonchi Cardiovascular: positive: Regular rate & rhythm, No murmur, No gallop. negative: Irregularly irregular, Extrasystoles, Tachycardia, Bradycardia, JVD present, Systolic murmur, Diastolic murmur Peripheral Pulses: positive: 2+ Abdomen: positive: Non-tender, No organomegaly, Nml bowel sounds, No distention. negative: Tenderness, Guarding, Rebound Back: positive: Nml inspection. negative: CVA tenderness (R), CVA tenderness (L) Skin: positive: Color nml, No rash, Warm, Dry. negative: Cyanosis, Diaphoresis, Pallor Extremities: positive: Non-tender, Full ROM, Nml appearance. negative: Calf tenderness, Joint swelling, Pedrito's sign/cords Neurologic/Psychiatric: positive: Oriented x3, Motor nml, Sensation nml, Mood/af fect nml. negative: Weakness, Sensory loss, Facial droop, Slurred/abnml speech, Depressed mood/affect - LABS Result Diagrams: 03/03/18 06:00 03/03/18 06:00 - SEPSIS Current Stage of Sepsis: Sepsis Possible source of Sepsis: Pulmonary Sepsis Criteria: Recorded Temperature greater than 38.3C or Less than 36C, Recorded Heart Rate greater than 90 bpm - FOLLOW UP Follow Up: You may followup your PCP in one week. You were found to have pneumonia and influenza infection. You have been treated with antibiotics and anti-influenza. You are greatly improved and stable. Augmentin and Tamiflu are prescribed for pt to continue the treatment course. You was found to have lower sodium at the admission, your home medication HCTZ is hold now. Should your symptoms return or worsen, you may present ER or call 911 or call your PCP for help. - TIME SPENT Time Spent in Discharge (Minutes): 55
[2018-03-03 12:01] VITALS: BP 120/50
== END 2018-03-03 13:26 | disposition home or self-care (01) | DRG 871 ==
LOC: ED 13:59 → MS2 16:42
PROVIDERS: ADMIT Nurse Practitioner Gerontology; ATTEND Nurse Practitioner Gerontology
DX: A41.9 Sepsis, unspecified organism (principal); I10 Essential (primary) hypertension; J10.00 Influenza due to other identified influenza virus with unspecified type of pneumonia; E87.1 Hypo-osmolality and hyponatremia; E11.22 Type 2 diabetes mellitus with diabetic chronic kidney disease; E11.65 Type 2 diabetes mellitus with hyperglycemia; I12.9 Hypertensive chronic kidney disease with stage 1 through stage 4 chronic kidney disease, or unspecified chronic kidney disease; N18.9 Chronic kidney disease, unspecified; I25.10 Atherosclerotic heart disease of native coronary artery without angina pectoris; Z95.1 Presence of aortocoronary bypass graft; Z85.828 Personal history of other malignant neoplasm of skin; R09.02 Hypoxemia; Z79.4 Long term (current) use of insulin; E78.00 Pure hypercholesterolemia, unspecified; I25.2 Old myocardial infarction; Z86.010 Personal history of colon polyps; M19.90 Unspecified osteoarthritis, unspecified site; Z90.49 Acquired absence of other specified parts of digestive tract; Z90.710 Acquired absence of both cervix and uterus
CPT/HCPCS: 36415; 71046; 80053; 83036; 83605; 83690; 83735; 84484; 85025; 87040; 87070; 87205; 87275; 87276; 93306; 94640; 96361; 96365; 99284; 99285

== ENCOUNTER 2018-07-22 08:00 | Outpatient (CLI) | payer MEDICARE ==
[2018-07-22 18:36] LABS: ALBUMIN 4.1 g/dL (3.2-5.5); ALBUMIN/GLOBULIN RATIO 1.2 (1.0-2.2); BILIRUBIN,TOTAL 0.7 mg/dL (0.2-1.0); CALCIUM 9.8 mg/dL (8.5-10.3); CREATININE 1.2 mg/dL (0.4-1.0); TOTAL PROTEIN 7.5 g/dL (6.7-8.2)
== END 2018-07-22 23:59 | disposition home or self-care (01) ==
LOC: LAB.F 08:00
PROVIDERS: ATTEND Registered Nurse
DX: I10 Essential (primary) hypertension (principal)
CPT/HCPCS: 36415; 80053

== ENCOUNTER 2018-08-26 10:08 | Outpatient (CLI) | payer MEDICARE ==
[2018-08-26 18:20] LABS: HB2 TOTAL 12.7 g/dL; HEMOGLOBIN A1C 0.81 g/dL
== END 2018-08-26 10:09 | disposition home or self-care (01) ==
LOC: LAB.S 10:08
PROVIDERS: ATTEND Physician Assistant Medical
DX: N28.9 Disorder of kidney and ureter, unspecified (principal)
CPT/HCPCS: 36415; 80053; 83036

== ENCOUNTER 2018-09-19 | Outpatient (CLI) | payer MEDICARE | END 2018-09-19 11:09 | disposition home or self-care (01) | DX: E78.5 Hyperlipidemia, unspecified (principal); D64.9 Anemia, unspecified | CPT/HCPCS: 36415; 80061; 83721; 85025 ==

== ENCOUNTER 2019-07-22 10:18 | Outpatient (CLI) | payer MEDICARE ==
[2019-07-22 15:55] LABS: CALCIUM 9.4 mg/dL (8.5-10.3); CREATININE 1.2 mg/dL (0.4-1.0); HB2 TOTAL 12.5 g/dL; HEMOGLOBIN A1C 0.75 g/dL; HEMOGLOBIN A1C % 7.6 % (4.6-6.2)
[2019-07-22 16:02] LABS: CREATININE,URINE 54.3 mg/dL; MICROALBUM/CREATININE RATIO,UR 75.5 ug/mg (<30.0); MICROALBUMIN,URINE 4.1 mg/dL (0-300.0)
== END 2019-07-22 10:19 | disposition home or self-care (01) ==
LOC: LAB.S 10:18
PROVIDERS: ATTEND Physician Assistant Medical
DX: E11.9 Type 2 diabetes mellitus without complications (principal)
CPT/HCPCS: 36415; 80048; 82043; 82570; 83036

== ENCOUNTER 2020-01-28 08:00 | Outpatient (CLI) | payer MEDICARE | END 2020-01-28 23:59 | disposition home or self-care (01) | LOC: LAB.F 08:00 | PROVIDERS: ATTEND Internal Medicine | DX: N30.90 Cystitis, unspecified without hematuria (principal) | CPT/HCPCS: 81002 ==

== ENCOUNTER 2020-05-21 11:31 | Outpatient (CLI) | payer MEDICARE ==
[2020-05-21 15:07] LABS: BILIRUBIN,URINE NEGATIVE (NEGATIVE); GLUCOSE, URINE (UA) 250 mg/dL (NEGATIVE); KETONES,URINE (UA) NEGATIVE (NEGATIVE); LEUKOCYTE ESTERASE, URINE MODERATE (NEGATIVE); NITRITE,URINE NEGATIVE (NEGATIVE); OCCULT BLOOD,URINE TRACE-INTA (NEGATIVE); PH,URINE 5.5 PH (5.0-7.5); PROTEIN,URINE NEGATIVE (NEGATIVE); UROBILINOGEN,URINE 0.2 (NORMAL) E.U./dL (NORMAL)
[2020-05-21 15:08] LABS: CLARITY,URINE SL. CLOUDY (CLEAR)
[2020-05-21 15:11] LABS: BACTERIA,URINE Few /HPF (None Seen); MUCUS,URINE Few Strands; SQUAMOUS EPITHELIAL CELL,UR FEW Squamous (<= Few); WBC,URINE >25 /HPF (0-5)
[2020-05-21 15:32] LABS: BASOPHILS # (AUTO) 0.1 10^3/uL (0.0-0.1); BASOPHILS % (AUTO) 0.7 %; EOSINOPHILS # (AUTO) 0.4 10^3/uL (0.0-0.7); EOSINOPHILS % (AUTO) 4.2 %; HCT - HEMATOCRIT 38.3 % (37.0-47.0); HGB - HEMOGLOBIN 11.9 g/dL (12.0-16.0); LYMPHOCYTES # (AUTO) 2.5 10^3/uL (1.5-3.5); LYMPHOCYTES % (AUTO) 29.5 %; MEAN CORPUSCULAR HEMOGLOBIN 26.6 pg (27.0-31.0); MEAN CORPUSCULAR HGB CONC 31.1 g/dL (32.0-36.0); MEAN CORPUSCULAR VOLUME 85.7 fL (81.0-99.0); MEAN PLATELET VOLUME 10.2 fL (7.9-10.8); MONOCYTES # (AUTO) 0.7 10^3/uL (0.0-1.0); NEUTROPHILS # (AUTO) 4.9 10^3/uL (1.5-6.6); NEUTROPHILS % (AUTO) 57.2 %; PLT - PLATELET COUNT 316 10^3/uL (130-450); RED BLOOD COUNT 4.47 10^6/uL (4.20-5.40); RED CELL DISTRIBUTION WIDTH 13.2 % (12.0-15.0); WHITE BLOOD COUNT 8.5 x10^3/uL (4.8-10.8)
[2020-05-21 15:51] LABS: ALBUMIN/GLOBULIN RATIO 1.3 (1.0-2.2); BILIRUBIN,TOTAL 0.9 mg/dL (0.2-1.0); CALCIUM 9.6 mg/dL (8.5-10.3); CREATININE 1.2 mg/dL (0.4-1.0); POTASSIUM 4.7 mmol/L (3.5-5.0); TOTAL PROTEIN 7.2 g/dL (6.7-8.2)
[2020-05-21 19:44] LABS: ESTIMATED AVERAGE GLUCOSE 321 mg/dL (70-100); HEMOGLOBIN A1c% 12.8 % (4.27-6.07)
== END 2020-05-21 11:32 | disposition home or self-care (01) ==
LOC: LAB.S 11:31
PROVIDERS: ATTEND Internal Medicine
DX: I10 Essential (primary) hypertension (principal); R30.0 Dysuria; E11.9 Type 2 diabetes mellitus without complications
CPT/HCPCS: 36415; 80053; 81001; 83036; 85025; 87086

== ENCOUNTER 2021-02-04 11:20 | Outpatient (CLI) | payer MEDICARE ==
[2021-02-04 15:40] LABS: ALBUMIN 4.2 g/dL (3.2-5.5); ALBUMIN/GLOBULIN RATIO 1.2 (1.0-2.2); BILIRUBIN,TOTAL 0.7 mg/dL (0.2-1.0); CALCIUM 9.8 mg/dL (8.5-10.3); CREATININE 1.2 mg/dL (0.4-1.0); POTASSIUM 4.5 mmol/L (3.5-5.0); TOTAL PROTEIN 7.6 g/dL (6.7-8.2)
[2021-02-04 20:35] LABS: ESTIMATED AVERAGE GLUCOSE 189 mg/dL (70-100); HEMOGLOBIN A1c% 8.2 % (4.27-6.07)
== END 2021-02-04 11:21 | disposition home or self-care (01) ==
LOC: LAB.S 11:20
PROVIDERS: ATTEND Internal Medicine
DX: E11.22 Type 2 diabetes mellitus with diabetic chronic kidney disease (principal); N18.9 Chronic kidney disease, unspecified
CPT/HCPCS: 36415; 80053; 83036

== ENCOUNTER 2021-09-20 11:46 | Outpatient (CLI) | payer MEDICARE ==
[2021-09-20 15:01] LABS: CREATININE,URINE 78.2 mg/dL; MICROALBUM/CREATININE RATIO,UR 157.3 ug/mg (<30.0); MICROALBUMIN,URINE 12.3 mg/dL (0-300.0)
[2021-09-20 15:09] LABS: BASOPHILS # (AUTO) 0.1 10^3/uL (0.0-0.1); BASOPHILS % (AUTO) 0.6 %; EOSINOPHILS # (AUTO) 0.3 10^3/uL (0.0-0.7); EOSINOPHILS % (AUTO) 3.2 %; HCT - HEMATOCRIT 38.4 % (37.0-47.0); HGB - HEMOGLOBIN 12.2 g/dL (12.0-16.0); LYMPHOCYTES % (AUTO) 31.8 %; MEAN CORPUSCULAR HEMOGLOBIN 27.1 pg (27.0-31.0); MEAN CORPUSCULAR HGB CONC 31.8 g/dL (32.0-36.0); MEAN CORPUSCULAR VOLUME 85.3 fL (81.0-99.0); MEAN PLATELET VOLUME 10.4 fL (7.9-10.8); MONOCYTES # (AUTO) 0.8 10^3/uL (0.0-1.0); MONOCYTES % (AUTO) 8.9 %; NEUTROPHILS # (AUTO) 5.2 10^3/uL (1.5-6.6); NEUTROPHILS % (AUTO) 55.2 %; PLT - PLATELET COUNT 269 10^3/uL (130-450); RED CELL DISTRIBUTION WIDTH 13.6 % (12.0-15.0); WHITE BLOOD COUNT 9.4 x10^3/uL (4.8-10.8)
[2021-09-20 15:17] LABS: ALBUMIN 3.9 g/dL (3.2-5.5); ALBUMIN/GLOBULIN RATIO 1.3 (1.0-2.2); ALKALINE PHOSPHATASE 60 IU/L (42-121); ALT ALANINE AMINOTRANSFERASE < 10 IU/L (10-60); AST ASPARTATE AMINOTRANSFERASE 15 IU/L (10-42); BILIRUBIN,TOTAL 0.7 mg/dL (0.2-1.0); BUN - BLOOD UREA NITROGEN 30 mg/dL (6-20); CALCIUM 9.4 mg/dL (8.5-10.3); CARBON DIOXIDE - CO2 25 mmol/L (21-32); CHLORIDE 103 mmol/L (101-111); CHOL/HDL RATIO 3.7 (<4.4); CHOLESTEROL 153 mg/dL; CREATININE 1.1 mg/dL (0.4-1.0); GFR - MDRD 47 (>89); GLUCOSE 141 mg/dL (70-100); HDL CHOLESTEROL 41 mg/dL; LDL CHOLESTEROL,CALCULATED 79 mg/dL; LDL/HDL RATIO 1.9 (<4.4); POTASSIUM 4.6 mmol/L (3.5-5.0); SODIUM 137 mmol/L (135-145); TOTAL PROTEIN 6.9 g/dL (6.7-8.2); TRIGLYCERIDES 164 mg/dL; VLDL CHOLESTEROL 33 mg/dL
[2021-09-20 15:27] LABS: THYROID STIMULATING HORMONE 1.88 uIU/mL (0.34-5.60)
[2021-09-20 20:18] LABS: ESTIMATED AVERAGE GLUCOSE 186 mg/dL (70-100); HEMOGLOBIN A1c% 8.1 % (4.27-6.07)
== END 2021-09-20 11:47 | disposition home or self-care (01) ==
LOC: LAB.S 11:46
PROVIDERS: ATTEND Registered Nurse
DX: I10 Essential (primary) hypertension (principal); E11.9 Type 2 diabetes mellitus without complications
CPT/HCPCS: 36415; 80053; 80061; 82043; 82570; 83036; 83721; 84443; 85025

== ENCOUNTER 2022-05-22 12:31 | Outpatient (CLI) | payer MEDICARE ==
[2022-05-22 15:26] LABS: ALBUMIN 3.9 g/dL (3.2-5.5); ALBUMIN/GLOBULIN RATIO 1.1 (1.0-2.2); BILIRUBIN,TOTAL 1.1 mg/dL (0.2-1.0); CALCIUM 9.6 mg/dL (8.5-10.3); CREATININE 1.3 mg/dL (0.4-1.0); POTASSIUM 4.5 mmol/L (3.5-5.0); TOTAL PROTEIN 7.4 g/dL (6.7-8.2)
[2022-05-22 21:36] LABS: ESTIMATED AVERAGE GLUCOSE 180 mg/dL (70-100); HEMOGLOBIN A1c% 7.9 % (4.27-6.07)
== END 2022-05-22 12:32 | disposition home or self-care (01) ==
LOC: LAB.S 12:31
PROVIDERS: ATTEND Registered Nurse
DX: E11.9 Type 2 diabetes mellitus without complications (principal)
CPT/HCPCS: 36415; 80053; 83036

== ENCOUNTER 2022-07-16 16:41 | Outpatient (CLI) | payer MEDICARE | END 2022-07-16 16:42 | disposition E | LOC: EMS 16:41 ==